=== PATIENT | male | born 2000 | race Caucasian/White ===

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

== ENCOUNTER 2021-01-21 17:55 | Outpatient (CLI) | payer MEDICAID | END 2021-01-21 17:56 | disposition home or self-care (01) | LOC: COV 17:55 | PROVIDERS: ATTEND Family Medicine | DX: R05 Cough (principal); R06.00 Dyspnea, unspecified; R53.83 Other fatigue; R43.8 Other disturbances of smell and taste; R09.81 Nasal congestion; Z20.822 Contact with and (suspected) exposure to COVID-19 ==

== ENCOUNTER 2021-03-22 10:36 | Emergency (ER) | payer MEDICAID ==
[2021-03-22 10:43] VITALS: BP 138/76
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
== END 2021-03-22 12:54 | disposition home or self-care (01) ==
LOC: ED 10:36
DX: M54.5 Low back pain (principal); F17.200 Nicotine dependence, unspecified, uncomplicated
CPT/HCPCS: 99281; 99282

== ENCOUNTER 2021-07-19 20:30 | Emergency (ER) | payer MEDICAID ==
[2021-07-19 20:38] VITALS: BP 122/79
--- NOTE | 2021-07-19 20:54 | ED Physician Documentation ---
History of Present Illness - Stated complaint Stated Complaint: LEFT EAR CLOGGED - Chief complaint Chief Complaint: Heent - Additonal information Additional information: 20-year-old male presents emergency department for evaluation of acute left ear pain as well as muffled hearing. This occurred after using a Q-tip. He reports history of previous TM injury after using Q-tips in the past. No cough congestion or fevers. Has not been swimming recently. Review of Systems Constitutional: denies: Fever, Chills Eyes: reports: Reviewed and negative Ears: reports: Loss of hearing, Ear pain. denies: Drainage/discharge, Tinnitus/ringing, Foreign body, Reviewed and negative Nose: reports: Reviewed and negative Throat: reports: Reviewed and negative Cardiac: reports: Reviewed and negative Respiratory: reports: Reviewed and negative PD PAST MEDICAL HISTORY - Past Medical History Cardiovascular: None Respiratory: None Neuro: None Endocrine/Autoimmune: None GI: None : None HEENT: None Psych: ADD/ADHD Musculoskeletal: None Derm: None - Past Surgical History Past Surgical History: No - Present Medications Home Medications: Ambulatory Orders Medication Instructions Recorded Confirmed ARIPiprazole [Abilify] 5 mg PO BID 01/11/20 01/11/20 ARIPiprazole [Abilify] 5 mg PO BID #60 tablet 01/11/20 Amox/Clav 875/125 [Augmentin] 1 each PO Q12H #10 tablet 01/11/20 Ondansetron Odt [Zofran] 4 mg TL Q6H PRN #10 tablet 11/21/20 Ofloxacin [Ofloxacin Otic drops] 5 ml OT BID #5 ml 07/19/21 - Allergies Allergies/Adverse Reactions: Allergies Allergy/AdvReac Type Severity Reaction Status Date / Time No Known Drug Allergies Allergy Verified 07/19/21 20:35 - Social History Does the pt smoke?: Yes Smoking Status: Current every day smoker Does the pt drink ETOH?: No Does the pt have substance abuse?: No - Immunizations Immunizations are current?: Yes - POLST Patient has POLST: No PD ED PE EXPANDED - General General: Alert, No acute distress, Well developed/nourished - HEENT HEENT: No: Ears normal (Left EAC moderately erythematous and swollen without drainage. The visible TM is intact without effusion. Right EAC and TM unremarkable.) - Neck Neck: Supple w/out meningeal sx, Thyroid enlarged / mass, No tenderness, Soft tissue TTP, Bony TTP. No: Adenopathy - Cardiac Cardiac: Regular Rate. No: Abnormal Rate, Tachy, Murmur Present Results - Vitals Vitals: Vital Signs - 24 hr 07/19/21 20:35 Temperature 36.5 C Heart Rate 62 Respiratory 16 Rate Blood Pressure 122/79 O2 Saturation 98 Oxygen O2 Source Room air PD MEDICAL DECISION MAKING - ED course Complexity details: reviewed results, re-evaluated patient, considered differential, d/w patient ED course: 20-year-old male presents emergency department with acute left ear pain and muffled hearing after using a Q-tip. On exam he has some mild left EAC erythema without drainage. The TM is intact without effusion. Patient will be started on ofloxacin otic drops. Advised to discontinue the use of Q-tips. Emergent return precautions were discussed. Departure - Departure Disposition: 01 Home, Self Care Clinical Impression: Left otitis externa Qualifiers: Otitis externa type: unspecified type Chronicity: acute Qualified Code(s): H60.502 - Unspecified acute noninfective otitis externa, left ear Condition: Stable Record reviewed to determine appropriate education?: Yes Instructions: ED Otitis Externa Ch Prescriptions: Ofloxacin [Ofloxacin Otic drops] 5 ml OT BID #5 ml Comments: Peter you are seen in the ER today for left ear pain. You do have some inflammation in the ear canal from using Q-tips. I advised that you stop using them. A prescription for antibiotic drops has been sent to the [facility] in [place]. Please place 5 drops in the left ear canal twice daily for 1 week. Return to the ER if you have increased pain fevers or swelling.
== END 2021-07-19 21:41 | disposition home or self-care (01) ==
LOC: ED 20:30
DX: H60.502 Unspecified acute noninfective otitis externa, left ear (principal); F17.200 Nicotine dependence, unspecified, uncomplicated
CPT/HCPCS: 99282; 99283